=== PATIENT | female | born 2000 | race Two or more races ===

== ENCOUNTER 2022-05-21 09:18 | Emergency (ER) | payer OTHER ==
[~2022-05-21] VITALS: Ht 154.9 cm; Wt 72.1 kg
[2022-05-21] MEDS ORDERED: OSEL75CA PO (10:35)
[2022-05-21] MEDS ORDERED: ZITHROMAX200 MG PO (10:35)
== END 2022-05-21 11:04 | disposition home or self-care (01) ==
LOC: EMR PED 09:18
DX: J10.1 Influenza due to other identified influenza virus with other respiratory manifestations (principal); Z20.822 Contact with and (suspected) exposure to COVID-19; Z91.013 Allergy to seafood

== ENCOUNTER 2022-07-09 12:13 | Emergency (ER) | payer OTHER ==
[~2022-07-09] VITALS: Ht 154.9 cm; Wt 69.9 kg
[~2022-07-09 12:13] MED LIST: OSEL75CA PO; ZITHROMAX200 MG PO
== END 2022-07-09 16:42 | disposition home or self-care (01) ==
LOC: EMR PED 12:13
DX: R10.9 Unspecified abdominal pain (principal)

== ENCOUNTER 2022-11-27 14:23 | Emergency (ER) | payer OTHER ==
[~2022-11-27] VITALS: Ht 162.6 cm; Wt 67.6 kg
== END 2022-11-27 18:14 | disposition home or self-care (01) ==
LOC: ER 14:23 → EMR PED 14:26
DX: K52.9 Noninfective gastroenteritis and colitis, unspecified (principal); Z91.013 Allergy to seafood

== ENCOUNTER 2023-12-26 16:10 | Emergency (ER) | payer OTHER ==
[~2023-12-26] VITALS: Ht 154.9 cm; Wt 83.9 kg
[2023-12-26] MEDS ORDERED: 0.9 % SODIUM CHLORIDE 500 ML IV ONE (17:30)
[2023-12-26] MEDS ORDERED: METHYLPREDNISOLONE SOD SUCC 40 MG VIAL IV ONE (17:30)
[2023-12-26] MEDS ORDERED: FAMOtidine 10 MG/ML (4ML VIAL) IV ONE (17:30)
[2023-12-26] MEDS ORDERED: DIPHENHYDRAMINE HCL 50 MG/ML VIAL 1ML IV ONE (17:30)
[2023-12-26] MEDS ORDERED: ONDANSETRON HCL 2 MG/ML VIAL IV ONE (17:30)
[2023-12-26] MEDS ORDERED: OxyCODONE HCL/APAP UD (PERCOCET) PO ONE (17:30)
[2023-12-26 17:44] LABS: HEMATOCRIT 36.9 % (36.0-45.00); HEMOGLOBIN 12.6 g/dL (12.0-15.00); MEAN CELL VOLUME 85.2 fL (80.00-100.00); PLATELET COUNT 246 K/uL (150-450); RED BLOOD COUNT 4.33 M/uL (4.00-6.00); RED CELL DISTRIBUTION WIDTH 12.9 % (11.5-14.5)
[2023-12-26 18:24] LABS: ALBUMIN 3.7 gm/dL (3.4-5.0); ALKALINE PHOSPHATASE 83 U/L (50-136); ALT/SGPT 102 U/L (12-78); ANION GAP 4 (10.0-20.0); AST/SGOT 50 U/L (15-37); BILIRUBIN TOTAL 0.77 mg/dL (0.3-1.2); BLOOD UREA NITROGEN 10 mg/dL (7-18); BUN CREA RATIO 17 (7.0-25.0); CALCIUM 8.6 mg/dL (8.5-10.1); CARBON DIOXIDE 31 mEq/L (21-32); CHLORIDE 109 mmol/L (98-107); CREATININE SERUM 0.59 mg/dL (0.55-1.02); GFR 128.67; GLOBULINA 3.3 G/DL (2.4-3.5); GLUCOSE FASTING 116 mg/dL (65-100); OSMOLALITY SERUM 281 MOSM/KG (275-295); POTASSIUM 3.32 mEq/L (3.5-5.1); SODIUM 141 mmol/L (136-145)
[2023-12-26 18:25] LABS: HCG QUANTITATIVE < 1 mUI/mL (1-3)
[2023-12-26 18:35] LABS: PH,URINE 6.5 (5.0-8.0); URINE APPEARANCE Cloudy; URINE BILIRRUBIN Negative (NEGATIVE); URINE BLOOD Negative; URINE COLOR Yellow; URINE GLUCOSE Negative (NEGATIVE); URINE LEUKOCYTE Trace; URINE NITRATE Negative; URINE PROTEIN Trace (NEGATIVE)
[2023-12-26 18:36] LABS: URINE BACTERIA 4636.6 uL (0.0-1933); URINE EPITHELIAL CELLS 89.9 uL (0.0-38.8); URINE RBC 8.8 uL (0.0-20.8); URINE WBC 188.1 uL (0.0-23.2)
[2023-12-26] MEDS ORDERED: CEFTRIAXONE SODIUM 2,000 MG VIAL IM ONE (20:45)
== END 2023-12-26 21:09 | disposition home or self-care (01) ==
LOC: ER 16:11
PROVIDERS: General Practice
DX: N39.0 Urinary tract infection, site not specified (principal); R10.12 Left upper quadrant pain; Z91.013 Allergy to seafood

== ENCOUNTER 2023-12-28 16:03 | Emergency (ER) | payer OTHER ==
[~2023-12-28] VITALS: Ht 154.9 cm; Wt 83.9 kg
[2023-12-28] MEDS ORDERED: CIPROFLOXACIN IN 5 % DEXTROSE 400 MG/200 ML PIGGYBAG IV STA (18:34)
[2023-12-28] MEDS ORDERED: OxyCODONE HCL/APAP UD (PERCOCET) PO STA (18:34)
[2023-12-28] MEDS ORDERED: KETOROLAC TROMETHAMINE 30 MG VIAL IV STA (18:34)
[2023-12-28] MEDS ORDERED: CIPROFLOXACIN IN 5 % DEXTROSE 400 MG/200 ML PIGGYBAG IV ONE (18:48)
[2023-12-28] MEDS ORDERED: KETOROLAC TROMETHAMINE 30 MG VIAL ONE (18:48)
[2023-12-28 19:09] LABS: HEMOGLOBIN 12.7 g/dL (12.0-15.00); MEAN CORPUSCULAR HEMOGLOBIN 28.6 pg (27.00-32.0); MEAN CORPUSCULAR HGB CONC 33.3 g/dl (32.0-36.0); PLATELET COUNT 260 K/uL (150-450); RED BLOOD COUNT 4.42 M/uL (4.00-6.00); RED CELL DISTRIBUTION WIDTH 13.1 % (11.5-14.5)
[2023-12-28 19:42] LABS: URINE APPEARANCE Cloudy; URINE BILIRRUBIN Negative (NEGATIVE); URINE BLOOD Negative; URINE COLOR Dark Yellow; URINE GLUCOSE Negative (NEGATIVE); URINE LEUKOCYTE Small; URINE NITRATE Positive; URINE PROTEIN Trace (NEGATIVE)
[2023-12-28 19:45] LABS: URINE BACTERIA 1872.1 uL (0.0-1933); URINE EPITHELIAL CELLS 90.5 uL (0.0-38.8); URINE RBC 7.6 uL (0.0-20.8)
[2023-12-28] MEDS ORDERED: ONDANSETRON HCL 2 MG/ML VIAL ONE (21:07)
== END 2023-12-28 21:35 | disposition home or self-care (01) ==
LOC: ER 16:03
DX: N39.0 Urinary tract infection, site not specified (principal); R30.0 Dysuria; Z91.013 Allergy to seafood